=== PATIENT | male | born 1960 | race Caucasian/White ===

== ENCOUNTER 2018-11-03 09:28 | Day surgery (SDC) | payer BC, OTHER ==
[~2018-11-03 09:28] MED LIST: ACETAMINOPHEN 1,000 MG/100 ML BTL IVPB ONE; CLINDAMYCIN 600MG/50ML PREMIX 600 MG/50 ML BAG IVPB ONE; FAMOTIDINE 20MG TABLET PO ONE; MECLIZINE 25 MG TABLET PO ONE; METOCLOPRAMIDE 10 MG TABLET PO ONE
[2018-11-03] MEDS ORDERED: DEXAMETHASONE 4 MG/ML 1ML VIAL IVP ONE (09:29)
[2018-11-03] MEDS ORDERED: GLYCOPYRROLATE 0.2 MG/ML ML IV ONE (09:29)
[2018-11-03] MEDS ORDERED: SUGAMMADEX SODIUM 200 MG/2 ML VIAL IV ONE ×2 (09:29)
[2018-11-03] MEDS ORDERED: LIDOCAINE 2% MDV (20MG/ML) 20ML VIAL IV ONE (09:29)
[2018-11-03] MEDS ORDERED: KETOROLAC 30 MG/ML VIAL IVP ONE (09:29)
[2018-11-03] MEDS ORDERED: SUCCINYLCHOLINE 20 MG/ML 10ML IVP ONE (09:29)
[2018-11-03] MEDS ORDERED: ROCURONIUM BROMIDE 50MG/5ML VIAL IV ONE (09:29)
[2018-11-03] MEDS ORDERED: PROPOFOL 10 MG/ML VIAL IV ONE (09:29)
[2018-11-03] MEDS ORDERED: ONDANSETRON HCL IV 4 MG/2 ML VIAL IVP ONE (09:29)
[2018-11-03] MEDS ORDERED: FENTANYL PF 100MCG/2ML VIAL IV ONE (09:29)
[2018-11-03] MEDS ORDERED: ATROPINE SULFATE 0.4 MG/ML 20ML IVP ONE (09:29)
[2018-11-03] MEDS ORDERED: SEVOFLURANE 250 ML INH ONE (09:29)
[2018-11-03] MEDS ORDERED: MIDAZOLAM HCL 2MG/2ML VIAL IV ONE (09:29)
[2018-11-03] MEDS ORDERED: EPHEDRINE SULFATE 50 MG/ML ML IV ONE (09:29)
[2018-11-03] MEDS ORDERED: RINGERS SOLUTION,LACTATED 1,000 ML IV ONE ×3 (10:10→10:50)
[2018-11-03] MEDS ORDERED: BUPIVACAINE 0.25% W/EPI MPF 30ML VIAL SQ ONE (10:38)
[2018-11-03] MEDS ORDERED: FENTANYL PF 100MCG/2ML VIAL IVP ONE (12:04)
[2018-11-03] MEDS ORDERED: HYDROCODONE/APAP 5/325MG TABLET PO ONE (12:11)
--- NOTE | 2018-11-04 08:20 | Operative Note ---
DATE OF SURGERY: 11/03/2018 SURGEON: Neftali Palm DO PREOPERATIVE DIAGNOSES: 1. Chronic cholelithiasis with chronic cholecystitis. 2. Incarcerated umbilical hernia. POSTOPERATIVE DIAGNOSES: 1. Chronic cholelithiasis with chronic cholecystitis. 2. Incarcerated umbilical hernia. OPERATION: 1. Laparoscopic cholecystectomy. 2. Open umbilical hernia repair. PROCEDURE: The patient is a 57-year-old male who was brought to the operating room and placed in a supine position. General anesthesia was administered per the department of anesthesia. The patient's abdomen was prepped and draped in the usual sterile fashion. At this time, the periumbilical region was anesthetized with a total of 5 mL of 0.25% Sensorcaine with epinephrine. A 3 cm curvilinear incision was made. This was carried down to the anterior rectus fascia. The umbilical stalk was encircled and dissected free from the underlying hernia sac. Clean circumferential fascial edges were obtained. Stay sutures of 0 Vicryl were placed. Through the hernia, a Channing port was then placed. Adequate pneumoperitoneum was established. Under direct visualization, additional 5 mm epigastric and two 5 mm right subcostal ports were placed. The gallbladder was then retracted in a cephalad and lateral direction opening up the angle of Calot. The hepatocystic triangle was thoroughly dissected out. There was no aberrant anatomy, no posterior ductal structures. The cystic duct and cystic artery were clearly identified. Each one was doubly clipped and cut in a standard fashion. Gallbladder was taken off the liver bed with the JACOB Harmonic. This was placed in an EndoCatch bag and brought out through the umbilical port. Right upper quadrant was rechecked and found to be hemostatic. No bleeding. No bile leaking. No bowel injury noted. The patient was leveled out. The pneumoperitoneum was released. All ports were removed. The hernia was closed with 0 Ethibond in interrupted fashion. The skin was then tacked with 3-0 Vicryl. Skin was closed with 4-0 Vicryl. The patient was taken to the recovery room in stable condition. FINDINGS AT THE TIME OF SURGERY: Chronic cholecystitis and incarcerated umbilical hernia. [id number]
== END 2018-11-03 12:55 | disposition home or self-care (01) ==
LOC: SUR 09:28
PROVIDERS: ATTEND Surgery
DX: K80.10 Calculus of gallbladder with chronic cholecystitis without obstruction (principal); K42.0 Umbilical hernia with obstruction, without gangrene; I10 Essential (primary) hypertension; E78.00 Pure hypercholesterolemia, unspecified; I47.1 Supraventricular tachycardia
CPT/HCPCS: 36416; 82948; J0330; J1885; J2405; J3490; J7120